=== PATIENT | male | born 1995 | race Caucasian/White ===

== ENCOUNTER 2018-03-13 20:24 | Emergency (ER) | payer OTHER ==
[~2018-03-13] VITALS: Ht 185.4 cm; Wt 94.5 kg
[2018-03-13 21:46] VITALS: BP 124/69
[2018-03-13 21:49] LABS: MICROSCOPIC NOT IND
== END 2018-03-13 22:34 | disposition home or self-care (01) ==
LOC: ED 21:29
DX: G89.11 Acute pain due to trauma (principal); N48.89 Other specified disorders of penis; J45.909 Unspecified asthma, uncomplicated
CPT/HCPCS: 81003; 99283